=== PATIENT | male | born 1965 | race Native Hawaiian/Other Pacific Islander ===

== ENCOUNTER → 2017-06-11 | Outpatient (CLI) | payer OTHER ==
[~2017-06-11] MED LIST: AMLO10TA2 PO; COZA100T2 PO; TRAM50TA2 PO; ZANA2CAP PO
--- NOTE | 2017-06-11 10:48 | REP ---
CT LUMBAR SPINE WITHOUT CONTRAST: HISTORY: Back pain. There is no disc bulge or herniation at the L1-2 and L2-3 levels. The nerves exit the neural foramina without compression. A diffuse disc bulge is present at the L3-4 level. There is minimal compression of the thecal sac. The L3 nerves exit the neural foramina without compression. A diffuse disc bulge is present at the L4-5 level. There is minimal compression of the thecal sac. There is hypertrophy of the posterior articulating facets. The L4 nerves exit the neural foramina without compression. The patient is status post L5-S1 anterior and posterior spinal fusion and partial left L5 facetectomy. Bone graft material is present anteriorly and metal rods and pedicle screws posteriorly. There is no disc bulge or herniation. There is compression of the left L5 nerve in the neural foramen. The right L5 nerve exits the neural foramen without compression. The intervertebral discs and vertebral bodies are normal in height. There is no subluxation. IMPRESSION: 1. Diffuse disc bulges at the L3-4 and L4-5 levels with minimal thecal sac compression. 2. The patient is status post L5-S1 anterior and posterior spinal fusion and partial left L5 facetectomy. There is anatomic alignment of the lumbar spine. Signed by Lorenzo Ricks MD 06/11/2017 10:57 A
== END ==
LOC: M RAD 10:01 → EDUNIT# 11:00
PROVIDERS: ATTEND Physician Assistant
DX: M51.06 Intervertebral disc disorders with myelopathy, lumbar region (principal); Z98.1 Arthrodesis status

== ENCOUNTER → 2017-06-13 | Outpatient (CLI) | payer OTHER ==
[~2017-06-13] VITALS: Ht 160 cm; Wt 98.0 kg
[~2017-06-13] MED LIST changes: +LIDOCAINE 2% INJ 100 MG/5 ML SDV (FOR ANES.) As Ordered ONE; +NS 1,000 ML IV ONE; +PROPOFOL 200 MG/20 ML VIAL As Ordered ONE
--- NOTE | 2017-06-13 09:18 | ROOR ---
Patient Name: Luz Doll Procedure Date: 06/13/2017 8:57 AM Date of : 1965 Age: 52 Room: [facility] Gender: Male Note Status: Finalized Procedure: Colonoscopy Indications: Screening for colorectal malignant neoplasm Providers: Ziyad Reagan Jr, MD Referring MD: BRAULIO MENENDEZ MD Requesting Provider: Medicines: Propofol per Anesthesia Complications: No immediate complications. Procedure: Pre-Anesthesia Assessment: - Prior to the procedure, a History and Physical was performed, and patient medications and allergies were reviewed. The patient is competent. The risks and benefits of the procedure and the sedation options and risks were discussed with the patient. All questions were answered and informed consent was obtained. Patient identification and proposed procedure were verified by the physician and the nurse in the pre-procedure area and in the procedure room. Mental Status Examination: alert and oriented. Airway Examination: normal oropharyngeal airway and neck mobility. Respiratory Examination: clear to auscultation. CV Examination: normal. ASA Grade Assessment: II - A patient with mild systemic disease. After reviewing the risks and benefits, the patient was deemed in satisfactory condition to undergo the procedure. The anesthesia plan was to use moderate sedation / analgesia (conscious sedation). Immediately prior to administration of medications, the patient was re-assessed for adequacy to receive sedatives. The heart rate, respiratory rate, oxygen saturations, blood pressure, adequacy of pulmonary ventilation, and response to care were monitored throughout the procedure. The physical status of the patient was re-assessed after the procedure. The Colonoscope was introduced through the anus and advanced to the cecum, identified by appendiceal orifice and ileocecal valve. The colonoscopy was performed without difficulty. The patient tolerated the procedure well. The quality of the bowel preparation was adequate and good. Findings: The rectum, recto-sigmoid colon, sigmoid colon, descending colon, transverse colon, ascending colon, cecum, appendiceal orifice and ileocecal valve appeared normal. Impression: - The rectum, recto-sigmoid colon, sigmoid colon, descending colon, transverse colon, ascending colon, cecum, appendiceal orifice and ileocecal valve are normal. - No specimens collected. Recommendation: - Discharge patient to home (ambulatory). - Repeat colonoscopy in 10 years for screening purposes. Ziyad Reagan MD Ziyad Reagan Jr, MD 06/13/2017 9:17:40 AM This report has been signed electronically. Number of Addenda: 0 Note Initiated On: 06/13/2017 8:57 AM Estimated Blood Loss: Estimated blood loss: none.
[2017-06-13 09:35] VITALS: BP 43/96
== END | disposition home or self-care (01) ==
LOC: M OPP 07:39
PROVIDERS: ATTEND Surgery
DX: Z12.11 Encounter for screening for malignant neoplasm of colon (principal); I10 Essential (primary) hypertension; M19.90 Unspecified osteoarthritis, unspecified site; M54.9 Dorsalgia, unspecified; G47.30 Sleep apnea, unspecified; R06.83 Snoring; Z98.1 Arthrodesis status; F17.210 Nicotine dependence, cigarettes, uncomplicated; Z79.899 Other long term (current) drug therapy

== ENCOUNTER → 2017-08-22 | Outpatient (CLI) | payer OTHER ==
[~2017-08-22] MED LIST changes: -LIDOCAINE 2% INJ 100 MG/5 ML SDV (FOR ANES.) As Ordered ONE; -NS 1,000 ML IV ONE; -PROPOFOL 200 MG/20 ML VIAL As Ordered ONE
--- NOTE | 2017-08-22 11:29 | REP ---
MR LUMBAR SPINE WITHOUT CONTRAST: HISTORY: Back and bilateral leg pain. COMPARISON: CT 06/11/2017. Decreased signal intensity on T2-weighted images is present in the L3-4 and L5-S1 intervertebral discs. This represents disc degeneration. There is not disc bulge or herniation at the L1-2 level. The L1 nerves exit the neural foramina without compression. A small central disc extrusion is present at the L2-3 level. There is minimal compression of the thecal sac. The L2 nerves exit the neural foramina without compression. A diffuse disc bulge is present at the L3-4 level. There is minimal compression of the thecal sac. The L3 nerves exit the neural foramina without compression. A diffuse disc bulge is present at the L4-5 level. There is minimal compression of the thecal sac. There is hypertrophy of the posterior articulating facets. The L4 nerves exit the neural foramina without compression. The patient is status post L5-S1 anterior and posterior spinal fusion. Bone graft material is present anteriorly and metal rods and pedicle screws posteriorly. There is no disc bulge or herniation. There is compression of the left L5 nerve in the neural foramen. The right L5 nerve exits the neural foramen without compression. There are 2 mm of grade 1 spondylolisthesis of L5 on S1. The conus medullaris is normal in appearance terminating at the level of the L1-2 intervertebral discs. Normal signal intensity is present in the lumbar vertebral bodies. IMPRESSION: 1. Small central disc extrusion at the L2-3 level with minimal thecal sac compression. This is a new finding. 2. Diffuse disc bulges at the L3-4 and L4-5 levels with minimal thecal sac compression. 3. The patient is status post L5-S1 anterior and posterior spinal fusion. There is compression of the left L5 nerve in the neural foramen. There is no other significant change. Signed by Lorenzo Ricks MD 08/22/2017 11:34 A
== END ==
LOC: M RAD 09:28
PROVIDERS: ATTEND Orthopaedic Surgery
DX: M51.36 Other intervertebral disc degeneration, lumbar region (principal)